=== PATIENT | female | born 1970 | race Asian ===

== ENCOUNTER 2018-06-10 12:50 | Emergency (ER) | payer OTHER ==
[~2018-06-10] VITALS: Ht 165.1 cm; Wt 59.0 kg
[2018-06-10 13:38] LABS: *BILIRUBIN,URIN NEGATIVE (NEGATIVE); *BLOOD, URINE NEGATIVE (NEGATIVE); *CLARITY,URINE CLEAR (CLEAR); *COLOR,URINE LIGHT YELLOW (YELLOW); *KETONES,URINE NEGATIVE (NEGATIVE); *PROTEIN,URINE NEGATIVE (NEGATIVE); *UROBILINOGEN,URINE 0.2 E.U./dl (NORMAL); LEUKOCYTE ESTERASE ,URINE NEGATIVE (NEGATIVE); NITRITE, URINE NEGATIVE (NEGATIVE); UGLUCOSE NEGATIVE (NEGATIVE)
[2018-06-10 13:41] LABS: BACTERIA,URINE FEW /HPF (NONE SEEN); RBC,URINE 0-3 /HPF (0-3); SQUAMOUS EPITHELIAL CELL,UR MODERATE /HPF (NONE SEEN); WBC,URINE 0-3 /HPF (0-3)
--- NOTE | 2018-06-10 13:58 | NUR ---
Patient discharged to home in stable conditon. Written and verbal after care instructions given. Patient verbalizes understanding of instructions.pt walks in steady gait.
[2018-06-10] MEDS ORDERED: IBUPROFEN 600 MG TABLET PO ONE (14:00)
[2018-06-10] MEDS ORDERED: IBUPROFEN 600 MG TABLET ONE (14:00)
== END 2018-06-10 14:01 | disposition home or self-care (01) ==
LOC: ER 12:54
DX: M54.5 Low back pain (principal)
CPT/HCPCS: A4663

== ENCOUNTER 2019-12-22 12:03 | Emergency (ER) | payer MEDICAID, OTHER ==
[~2019-12-22] VITALS: Ht 165.1 cm; Wt 59.0 kg
--- NOTE | 2019-12-22 12:28 | NUR ---
Patient presents to ER with c/o of elbow pain, per patient pain starts at the wrist and radiates to the elbow, states it was swollen last night. No swelling noted on assessment. Patient denies tingling and numbness. Patient able to bend and extend elbow without difficulty. Patient alert and oriented x 4. N No acute distress.
--- NOTE | 2019-12-22 12:30 | NUR ---
Pt seen and examined by Dr. Lockett.
--- NOTE | 2019-12-22 12:36 | NUR ---
Patient given written and verbal discharge instructions. Patient verbalizes understanding of instructions. Patient is ambulatory with steady gait.
== END 2019-12-22 12:37 | disposition home or self-care (01) ==
LOC: ER 12:11
DX: M77.9 Enthesopathy, unspecified (principal); Z79.899 Other long term (current) drug therapy
CPT/HCPCS: A4663

== ENCOUNTER 2021-05-11 18:52 | Emergency (ER) | payer MEDICAID ==
[~2021-05-11] VITALS: Ht 167.6 cm; Wt 61.2 kg
[~2021-05-11 18:52] MED LIST: CETI-90 PO
--- NOTE | 2021-05-11 19:08 | NUR ---
Pt ambulated ti ER with c/o back pain x2 days. A/O x4, no SOB or labored breathing, denies CP/pressure. No GI/ distress.
--- NOTE | 2021-05-11 19:12 | NUR ---
Dr. Reinoso at bedside, MSE in progress.
[2021-05-11] MEDS ORDERED: CYCLOBENZAPRINE HCL 10 MG TABLET PO ONE (19:30)
[2021-05-11] MEDS ORDERED: KETOROLAC TROMETHAMINE 60 MG INJ IM ONE ×2 (19:30→19:37)
[2021-05-11] MEDS ORDERED: CYCLOBENZAPRINE HCL 10 MG TABLET ONE (19:37)
[2021-05-11 19:45] LABS: *BILIRUBIN,URIN NEGATIVE (NEGATIVE); *BLOOD, URINE NEGATIVE (NEGATIVE); *CLARITY,URINE CLEAR (CLEAR); *COLOR,URINE LIGHT YELLOW (YELLOW); *KETONES,URINE NEGATIVE (NEGATIVE); *UROBILINOGEN,URINE 0.2 E.U./dl (NORMAL); LEUKOCYTE ESTERASE ,URINE NEGATIVE (NEGATIVE); NITRITE, URINE NEGATIVE (NEGATIVE); UGLUCOSE NEGATIVE (NEGATIVE)
[2021-05-11] MEDS ORDERED: CYCL10TA9 PO (20:57)
[2021-05-11] MEDS ORDERED: NAPR-1164 PO (20:57)
--- NOTE | 2021-05-11 21:05 | NUR ---
Patient discharged to home in stable condition. Denies any pain/discomfort at this time. A/O x4. Written and verbal after care instructions given. Patient verbalizes understanding of instructions. Stressed follow up or return to ER for worsening s/s. Steady gait. Picked up by family.
[2021-05-11 21:11] VITALS: BP 138/74
== END 2021-05-11 21:08 | disposition home or self-care (01) ==
LOC: ER 18:52
DX: M54.5 Low back pain (principal)
CPT/HCPCS: 81003; 96372; 99283; J1885; A4663

== ENCOUNTER 2022-10-06 09:36 | Emergency (ER) | payer MEDICAID ==
[~2022-10-06] VITALS: Ht 165.1 cm; Wt 63.5 kg
[~2022-10-06 09:36] MED LIST changes: +CYCL10TA9 PO; +NAPR-1164 PO
--- NOTE | 2022-10-06 10:47 | NUR ---
Pt seen by at triage desk.
[2022-10-06] MEDS ORDERED: ACETAMINOPHEN 325 MG TABLET PO ONE (11:00)
--- NOTE | 2022-10-06 11:00 | NUR ---
Specimens for COVID antigen and rapid influenza collected and sent to lab. Unable to do EKG at this time, no ER beds/gurneys available. Pt back to ER waiting room.
[2022-10-06] MEDS ORDERED: ACETAMINOPHEN 325 MG TABLET ONE (11:05)
--- NOTE | 2022-10-06 11:51 | NUR ---
Received call from lab, pt is covid-19 positive.
[2022-10-06] MEDS ORDERED: ONDA4TAB5 PO (11:53)
--- NOTE | 2022-10-06 12:55 | NUR ---
Patient discharged to home in stable condition. Written and verbal after care instructions given. Patient verbalizes understanding of instructions. Stressed follow up or return to ER for worsening s/s.
== END 2022-10-06 12:55 | disposition home or self-care (01) ==
LOC: ER 09:36
DX: U07.1 COVID-19 (principal); R11.0 Nausea; R07.89 Other chest pain; Z82.49 Family history of ischemic heart disease and other diseases of the circulatory system
CPT/HCPCS: 87400; 93005; A4663